=== PATIENT | male | born 1985 | race Caucasian/White ===

== ENCOUNTER 2020-10-24 08:20 | Emergency (ER) | payer OTHER ==
[2020-10-24] MEDS ORDERED: BENZONATATE 100 MG CAP PO ONE (10:11)
[2020-10-24] MEDS ORDERED: ALBUTEROL INHALER 60 PUFF/8 GM IH ONE (10:11)
--- NOTE | 2020-10-24 10:18 | RAD REPORT ---
EXAM DESCRIPTION: RAD - Chest Single View - 10/24/2020 10:09 am CLINICAL HISTORY: COVID;Dyspnea COMPARISON: None TECHNIQUE: AP portable chest image was obtained 10/24/2020 10:09 am . FINDINGS: Lung volumes are low. Bilateral peripheral airspace opacities are present in the mid and l ower lung perez. This is a very common presentation for COVID-19 pneumonia. Heart and vasculature ar e normal. No measurable pleural effusion and no pneumothorax. No acute bony abnormality seen. No acut e aortic findings suspected. IMPRESSION: Mild to moderate bilateral pneumonia pattern commonly seen with COVID-19 pneumonia.
[2020-10-24] MEDS ORDERED: ONDANSETRON 4 MG (ODT) TAB ONE (10:31)
--- NOTE | 2020-10-24 18:00 | ER ---
Nurse's Notes [facility] Name: Mike Peña Age: 35 yrs Sex: Male : 1985 Arrival Date: 10/24/2020 Time: 08:26 Bed 13 Private MD: Diagnosis: Other viral pneumonia Presentation: 10/24 08:31 Chief complaint: Patient states: COVID +. Pt reports that his symptoms began 9-10 days ss ago, but he feels like it's just getting harder to breathe. Coronavirus screen: Client denies travel out of the [place] in the last 14 days. Ebola Screen: Patient denies exposure to infectious person. Patient denies travel to an Ebola-affected area in the 21 days before illness onset. Risk Assessment: Do you want to hurt yourself or someone else? Patient reports no desire to harm self or others. Onset of symptoms was October 14, 2020. Initial Sepsis Screen: Does the patient meet any 2 criteria? No. Patient's initial sepsis screen is negative. Does the patient have a suspected source of infection? No. Patient's initial sepsis screen is negative. 08:31 Method Of Arrival: Ambulatory ss 08:31 Acuity: KELY 3 ss Triage Assessment: 10:17 General: Appears in no apparent distress. Behavior is calm, cooperative. Respiratory: ll1 the patient has mild shortness of breath. Historical: - Allergies: 08:32 PENICILLINS; ss - Home Meds: 08:32 None [Active]; ss - PMHx: 08:32 None; ss - PSHx: 08:32 None; ss - Immunization history:: Adult Immunizations unknown. - Social history:: Smoking status: Patient denies any tobacco usage or history of. Screenin:13 Abuse screen: Denies threats or abuse. Nutritional screening: No deficits noted. ll1 Tuberculosis screening: No symptoms or risk factors identified. Fall Risk Total Hughes Fall Scale indicates No Risk (0-24 pts). Assessment: 09:35 General: Appears in no apparent distress. Behavior is calm, cooperative, appropriate ll1 for age. Pain: Complains of pain in mid chest Quality of pain is described as aching, Pain began 1 day ago. Aggravated by deep breathing/cough. Neuro: No deficits noted. Cardiovascular: Reports chest pain, shortness of breath, Heart tones S1 S2 Capillary refill < 3 seconds Clubbing of nail beds is absent JVD is absent Patient's skin is warm and dry. Respiratory: Reports shortness of breath cough that is Airway is patent Trachea midline Respiratory effort is even, unlabored, Respiratory pattern is regular, symmetrical, Breath sounds are clear bilaterally. GI: Abdomen is flat, Bowel sounds present X 4 quads. Abd is soft and non tender X 4 quads. Reports diarrhea, nausea. 10:35 Reassessment: No changes from previously documented assessment. Patient and/or family ll1 updated on plan of care and expected duration. Pain level reassessed. Patient is alert, oriented x 3, equal unlabored respirations, skin warm/dry/pink. Cardiovascular: No deficits noted. Rhythm is regular. Vital Signs: 08:31 BP 113 / 73; Pulse 83; Resp 18; Temp 98.4(TE); Pulse Ox 94% on R/A; Weight 95.25 kg; ss Height 6 ft. 1 in. (185.42 cm); Pain 6/10; 10:13 BP 130 / 71; Pulse 79; Resp 19; Pulse Ox 95% on R/A; ll1 10:43 BP 130 / 71; Pulse 79; Resp 18; Pulse Ox 99% ; ll1 08:31 Body Mass Index 27.71 (95.25 kg, 185.42 cm) ED Course: 08:26 Patient arrived in ED. mr 08:32 Triage completed. ss 08:32 Arm band placed on right wrist. ss 09:19 Larry Hansen PA is PHCP. cp 09:20 Jovanni Villa MD is Attending Physician. cp 09:29 Brii Peters, CIRO is Primary Nurse. ll1 09:30 Patient placed in an exam room, on a stretcher. ll1 10:08 XRAY Chest (1 view) In Process Unspecified. EDMS 10:14 Patient has correct armband on for positive identification. Bed in low position. Call ll1 light in reach. Side rails up X 1. Pulse ox on. NIBP on. 10:21 Trip Cruz MD is Referral Physician. cp 10:43 No provider procedures requiring assistance completed. Patient did not have IV access ll1 during this emergency room visit. Administered Medications: 09:54 Drug: Tessalon Perle (benzonatate) 200 mg Route: PO; ll1 10:33 Follow up: Response: No adverse reaction ll1 09:55 Drug: Albuterol HFA Inhaler 2 puffs Route: Inhalation; ll1 10:34 Follow up: Response: No adverse reaction ll1 10:12 Drug: Zofran (Ondansetron) 4 mg Route: PO; ll1 10:43 Follow up: Response: No adverse reaction; Nausea is decreased ll1 Outcome: 10:22 Discharge ordered by MD. cp 10:43 Discharged to home ambulatory. ll1 10:43 Condition: stable 10:43 Discharge instructions given to patient, Instructed on discharge instructions, follow up and referral plans. medication usage, Demonstrated understanding of instructions, follow-up care, medications, Prescriptions given X 3. 10:44 Patient left the ED. 1 Signatures: Dispatcher [employer] EDSC LouisEvy Shelby, RN RN ss Larry Hansen PA PA cp Lewis, Lynsay, RN RN ll1 Corrections: (The following items were deleted from the chart) 09:14 08:31 Acuity: KELY 4 ss ss
--- NOTE | 2020-10-24 18:01 | EDPHYS ---
Physician Documentation [facility] Name: Mike Peña Age: 35 yrs Sex: Male : 1985 Arrival Date: 10/24/2020 Time: 08:26 Bed 13 Private MD: ED Physician Jovanni Villa HPI: 10/24 09:35 This 35 yrs old Male presents to ER via Ambulatory with complaints of COVID+, cp Shortness Of Breath. 09:35 The patient or guardian reports cough, that is intermittent, with productive sputum. cp 09:35 Onset: The symptoms/episode began/occurred 9 day(s) ago. Modifying factors: the cp symptoms are aggravated by activity. Associated signs and symptoms: Pertinent positives: chest pain, with cough, Pertinent negatives: diarrhea, fever, vomiting. Severity of symptoms: in the emergency department the symptoms are unchanged. Patient reports positive COVID-19 test when symptoms started. Historical: - Allergies: 08:32 PENICILLINS; ss - Home Meds: 08:32 None [Active]; ss - PMHx: 08:32 None; ss - PSHx: 08:32 None; ss - Immunization history:: Adult Immunizations unknown. - Social history:: Smoking status: Patient denies any tobacco usage or history of. ROS: 09:40 Constitutional: Negative for body aches, chills, fever, poor PO intake. cp 09:40 Eyes: Negative for injury, pain, redness, and discharge. cp 09:40 Cardiovascular: Positive for chest pain, with cough. 09:40 Respiratory: Positive for cough, "sounds productive", shortness of breath, at rest. Exam: 09:50 Constitutional: The patient appears in no acute distress, alert, awake, cp non-diaphoretic, non-toxic, well developed, well nourished. 09:50 Head/Face: Normocephalic, atraumatic. cp 09:50 Eyes: Periorbital structures: appear normal, Conjunctiva: normal, no exudate, no injection, Sclera: no appreciated abnormality, Lids and lashes: appear normal, bilaterally. 09:50 ENT: External ear(s): are unremarkable, Nose: is normal, Posterior pharynx: Airway: no evidence of obstruction, patent. 09:50 Neck: ROM/movement: is normal, is supple, no meningismus, no nuchal rigidity, Lymph nodes: no appreciated lymphadenopathy. 09:50 Chest/axilla: Inspection: normal, Palpation: is normal, no crepitus, no tenderness. 09:50 Cardiovascular: Rate: normal, Rhythm: regular, Edema: is not appreciated, JVD: is not appreciated. 09:50 Respiratory: the patient does not display signs of respiratory distress, Respirations: labored breathing, is not present, intercostal retractions, are absent, shallow respirations, are not present, Breath sounds: bronchial sounds, that are mild, are heard diffusely, decreased breath sounds, are not appreciated, stridor, is not appreciated. 09:50 Abdomen/GI: Inspection: abdomen appears normal, Palpation: abdomen is soft and non-tender, in all quadrants. 09:50 Back: pain, is absent, ROM is normal. Vital Signs: 08:31 BP 113 / 73; Pulse 83; Resp 18; Temp 98.4(TE); Pulse Ox 94% on R/A; Weight 95.25 kg; ss Height 6 ft. 1 in. (185.42 cm); Pain 6/10; 10:13 BP 130 / 71; Pulse 79; Resp 19; Pulse Ox 95% on R/A; ll1 10:43 BP 130 / 71; Pulse 79; Resp 18; Pulse Ox 99% ; ll1 08:31 Body Mass Index 27.71 (95.25 kg, 185.42 cm) ss MDM: 09:28 Patient medically screened. cp 10:00 Differential diagnosis: bronchitis, flu, URI, respiratory failure, pneumonia. cp 10:19 Data reviewed: vital signs, nurses notes, radiologic studies, plain films. Test cp interpretation: by ED physician or midlevel provider: plain radiologic studies. Counseling: I had a detailed discussion with the patient and/or guardian regarding: the historical points, exam findings, and any diagnostic results supporting the discharge/admit diagnosis, lab results, the need for outpatient follow up, a barista, to return to the emergency department if symptoms worsen or persist or if there are any questions or concerns that arise at home. ED course: Vital signs stable. Patient resting comfortably in exam room. No signs of respiratory distress patient appears in no acute distress and non-toxic. Oxygen sats 94 to 95% on room air. Patient afebrile. Will discharge to home for continued monitoring patient is instructed to return worsening shortness of breath cough fevers. Recommend a pulse ox to monitor oxygen sats.. 10/24 09:11 Order name: JULISA Chest (1 view); Complete Time: 10:28 rn 10/24 10:28 Interpretation: Report review. cp Administered Medications: 09:54 Drug: Tessalon Perle (benzonatate) 200 mg Route: PO; ll1 10:33 Follow up: Response: No adverse reaction ll1 09:55 Drug: Albuterol HFA Inhaler 2 puffs Route: Inhalation; ll1 10:34 Follow up: Response: No adverse reaction ll1 10:12 Drug: Zofran (Ondansetron) 4 mg Route: PO; ll1 10:43 Follow up: Response: No adverse reaction; Nausea is decreased ll1 Disposition: 16:50 Co-signature as Attending Physician, Jovanni Villa MD I agree with the assessment and rn plan of care. Attestation: The patient's history, exam findings, diagnostics, and a summary of any interventions or procedures was reviewed in detail with Larry CLARK. Disposition Summary: 10/24/20 10:22 Discharge Ordered Location: Home cp Problem: new cp Symptoms: have improved cp Condition: Stable cp Diagnosis - Other viral pneumonia cp Followup: cp - With: Trip Cruz MD - When: 2 - 3 days - Reason: Recheck today's complaints Discharge Instructions: - Discharge Summary Sheet cp - COVID-19 cp - Things to Know about the COVID-19 Pandemic - [facility] cp - 10 Things You Can Do to Manage Your COVID-19 Symptoms at Home - [facility] cp - Prevent the Spread of COVID-19 if You Are Sick - [facility] cp Forms: - Medication Reconciliation Form cp - Thank You Letter cp - Antibiotic Education cp - Prescription Opioid Use cp - Work release form bd Prescriptions: - albuterol sulfate 90 mcg/actuation Inhalation HFA aerosol inhaler - inhale 2 puff by INHALATION route every 4-6 hours; 1 Inhaler; Refills: 0, cp Product Selection Permitted - Zithromax Z-Reece 250 mg Oral Tablet - take 1 tablet by ORAL route as directed for 5 days Day 1 - take two (2) tablets cp one time. Day 2, 3, 4 , 5 take one (1) tablet once daily.; 6 tablet; Refills: 0, Product Selection Permitted - Prednisone 20 mg Oral Tablet - take 2 tablets by ORAL route once daily for 5 days then take 1 tablet daily for cp 5 days; 15 tablet; Refills: 0, Product Selection Permitted Signatures: Dispatcher [employer] Jovanni George MD MD rn Smirch, Shelby, RN RN ss Larry Hansen PA PA cp Lewis, Lynsay, RN RN ll1
[2020-10-25 20:33] VITALS: TEMP 98.4
[2020-10-25 20:35] VITALS: BP 130/71
[2020-10-25 20:37] VITALS: O2SAT 99
== END 2020-10-24 10:44 | disposition home or self-care (01) ==
LOC: ER 08:20
DX: U07.1 COVID-19 (principal); J12.82 Pneumonia due to coronavirus disease 2019
CPT/HCPCS: 71045